=== PATIENT | female | born 1960 | race Hispanic/Latino ===

== ENCOUNTER 2017-04-19 12:44 | Outpatient (CLI) | payer BC ==
--- NOTE | 2017-04-19 14:30 | RAD ---
TWO VIEW CHEST: History: Dyspnea. FINDINGS: The lungs appear clear of confluent infiltrate. Interstitial markings are mildly increased. No eviden ce of vascular congestion. Heart size within normal range. Osseous structures unremarkable. IMPRESSION: Mild increased interstitium. Chest is otherwise unremarkable. POS: [facility]
== END 2017-04-19 12:45 | disposition home or self-care (01) ==
LOC: RAD 12:44
PROVIDERS: ATTEND Internal Medicine
DX: R06.00 Dyspnea, unspecified (principal)
CPT/HCPCS: 71020

== ENCOUNTER 2017-09-23 18:00 | Outpatient (CLI) | payer BC | END 2017-09-23 18:01 | disposition home or self-care (01) | LOC: SLEEPLAB 18:00 | PROVIDERS: ATTEND Family Medicine | DX: G47.33 Obstructive sleep apnea (adult) (pediatric) (principal); R51 Headache; R09.89 Other specified symptoms and signs involving the circulatory and respiratory systems; R53.83 Other fatigue; E66.9 Obesity, unspecified; R06.83 Snoring; F32.9 Major depressive disorder, single episode, unspecified; R35.1 Nocturia; R09.02 Hypoxemia | CPT/HCPCS: 95806 ==

== ENCOUNTER 2017-11-10 13:25 | Outpatient (CLI) | payer BC | END 2017-11-10 13:26 | disposition home or self-care (01) | LOC: CP 13:25 | PROVIDERS: ATTEND Internal Medicine | DX: R06.09 Other forms of dyspnea (principal); J44.9 Chronic obstructive pulmonary disease, unspecified | CPT/HCPCS: 94010; 94727; 94729 ==

== ENCOUNTER 2019-08-07 12:19 | Outpatient (CLI) | payer BC ==
[~2019-08-07 12:19] MED LIST: Iopamidol-370 76% 500 ML 1 ML ONE
--- NOTE | 2019-08-07 13:24 | CT ---
EXAM: CT Chest W Con PROVIDED CLINICAL HISTORY: History of pulmonary mass COMPARISON: None FINDINGS: The heart, pericardium and great vessels demonstrate an unremarkable CT appearance. There are conspicuous by number lymph nodes within the paratracheal, bilateral hilar, prevascular and subcarinal regions. Several enlarged lymph nodes are numb on these, with largest in the right infrahilar region measuring about 1.6 cm in short axis. No axillary lymph node enlargement is evident . The airway appears patent and of normal caliber. The lungs are free of significant opacity. No pleural fluid, pleural thickening or pneumothorax apparent. The visualized portions of the upper abdomen appear unremarkable. IMPRESSION: Mediastinal and hilar lymph node enlargement. A lymphoproliferative disorder cannot be excluded.
== END 2019-08-07 12:20 | disposition home or self-care (01) ==
LOC: BICCT 12:19
PROVIDERS: ATTEND Internal Medicine
DX: R59.0 Localized enlarged lymph nodes (principal); R91.8 Other nonspecific abnormal finding of lung field
CPT/HCPCS: 71260

== ENCOUNTER 2019-12-06 12:26 | Outpatient (CLI) | payer BC ==
--- NOTE | 2019-12-06 13:35 | CT ---
CT CHEST WITHOUT CONTRAST: HISTORY: Lymphadenopathy. COMPARISON: Contrast-enhanced CT scan of 08/07/2019. FINDINGS: Absence of IV contrast reduces the sensitivity of the exam, particularly for the evaluation of medias tinal, hilar, and vascular structures. The previously noted lymphadenopathy in the mediastinal and h ilar lymph nodes appears stable with the enlarged right infrahilar lymph node measuring about 1.7 cm . No pleural or pericardial effusions are identified. No pneumothoraces, focal areas of consolidation, lung nodules, or masses are seen. There are vascular calcifications without evidence of aneurysmal dilatation of the abdominal aorta. Bony structures are unremarkable. IMPRESSION: Stable exam with mediastinal and hilar lymphadenopathy. POS: OFF
== END 2019-12-06 12:27 | disposition home or self-care (01) ==
LOC: BICCT 12:26
DX: R59.0 Localized enlarged lymph nodes (principal)
CPT/HCPCS: 71250

== ENCOUNTER 2020-06-30 15:22 | Outpatient (CLI) | payer BC ==
--- NOTE | 2020-06-30 16:03 | CT ---
CT CHEST WITHOUT CONTRAST CLINICAL INDICATION: Follow-up lymphadenopathy. COMPARISON: 12/06/2019 FINDINGS: Aorta: Limited evaluation without IV contrast. Thoracic aorta is normal in caliber with minimal vascu lar calcifications at the aortic arch. Lungs: Mild dependent atelectasis is present. No consolidation, pleural effusion, or pulmonary nodule is visualized. Large airways are patent. Mediastinum: Limited due to lack of intravenous contrast. However, there is increased number as well as mild enlargement of mediastinal lymph nodes which was also present on prior exam. Largest is AP window lymph node measures 1.5 cm in short axis dimension. A right paratracheal lymph node measures 1 .1 cm in short axis dimension. An enlarged right hilar lymph node measuring 1.8 cm is present. This previously measured 1.7 cm on study of 08/07/2019. There are also likely enlarged left hilar lymph nod es, but this difficult to evaluate without IV contrast. Findings are overall similar to prior exam. Thyroid gland: Grossly normal nonenhanced CT appearance. Osseous structures: No suspicious lytic or sclerotic osseous lesions are identified. Chest wall: No abnormality visualized. Upper abdomen: Within normal limits for nonenhanced appearance. IMPRESSION: Stable mediastinal and hilar lymphadenopathy.
== END 2020-06-30 15:23 | disposition home or self-care (01) ==
LOC: BICCT 15:22
PROVIDERS: ATTEND Internal Medicine Critical Care Medicine
DX: R59.0 Localized enlarged lymph nodes (principal)
CPT/HCPCS: 71250

== ENCOUNTER 2021-02-10 15:04 | Outpatient (CLI) | payer BC | END 2021-02-10 15:05 | disposition home or self-care (01) | LOC: BICMRI 15:04 | PROVIDERS: ATTEND Orthopaedic Surgery | DX: M50.10 Cervical disc disorder with radiculopathy, unspecified cervical region (principal) | CPT/HCPCS: 72141 ==